=== PATIENT | female | born 1975 | race Caucasian/White ===

== ENCOUNTER 2019-06-17 11:57 | Emergency (ER) | payer OTHER ==
[~2019-06-17] VITALS: Ht 154.9 cm; Wt 54.4 kg
[2019-06-17] MEDS ORDERED: MEDROLPACK PO (14:19)
[2019-06-17] MEDS ORDERED: SKELAXIN800 MG PO (14:19)
[2019-06-17] MEDS ORDERED: NAPROXEN500 MG PO (14:19)
== END 2019-06-17 15:27 | disposition home or self-care (01) ==
LOC: ER 11:57
DX: M62.838 Other muscle spasm (principal); M54.2 Cervicalgia

== ENCOUNTER 2023-08-15 15:59 | Emergency (ER) | payer OTHER ==
[~2023-08-15] VITALS: Ht 154.9 cm; Wt 59.0 kg
[~2023-08-15 15:59] MED LIST: MEDROLPACK PO; NAPROXEN500 MG PO; SKELAXIN800 MG PO
[2023-08-15] MEDS ORDERED: CLARITIN5 MG (16:24)
[2023-08-15 17:52] LABS: URINE APPEARANCE Clear; URINE BILIRRUBIN Negative (NEGATIVE); URINE BLOOD Large; URINE COLOR Yellow; URINE GLUCOSE Negative (NEGATIVE); URINE LEUKOCYTE Negative; URINE NITRATE Negative; URINE PROTEIN Negative (NEGATIVE); URINE UROBILINOGEN 0.2 E.U./dl
[2023-08-15 17:55] LABS: HEMATOCRIT 37.9 % (36.0-45.00); HEMOGLOBIN 12.8 g/dL (12.0-15.00); MEAN CELL VOLUME 88.3 fL (80.00-100.00); MEAN CORPUSCULAR HEMOGLOBIN 29.9 pg (27.00-32.0); MEAN CORPUSCULAR HGB CONC 33.9 g/dl (32.0-36.0); PLATELET COUNT 316 K/uL (150-450); RED BLOOD COUNT 4.29 M/uL (4.00-6.00); RED CELL DISTRIBUTION WIDTH 12.6 % (11.5-14.5)
[2023-08-15 17:56] LABS: URINE BACTERIA 66.7 uL (0.0-1933); URINE EPITHELIAL CELLS 2.3 uL (0.0-38.8); URINE RBC 341.4 uL (0.0-20.8)
[2023-08-15 18:19] LABS: ALBUMIN 3.9 gm/dL (3.4-5.0); BILIRUBIN TOTAL 0.26 mg/dL (0.3-1.2); CALCIUM 9.4 mg/dL (8.5-10.1); CREATININE SERUM 0.49 mg/dL (0.55-1.02); GFR 135.96; GLOBULINA 3.6 G/DL (2.4-3.5); POTASSIUM 3.43 mEq/L (3.5-5.1); TOTAL PROTEIN 7.5 gm/dL (6.4-8.2)
[2023-08-15 18:31] LABS: URINE WBC 0.9 uL (0.0-23.2)
== END 2023-08-15 19:04 | disposition home or self-care (01) ==
LOC: ER 16:00
PROVIDERS: General Practice
DX: K29.70 Gastritis, unspecified, without bleeding (principal); R10.9 Unspecified abdominal pain; Z20.822 Contact with and (suspected) exposure to COVID-19

== ENCOUNTER 2023-09-01 23:24 | Emergency (ER) | payer OTHER ==
[~2023-09-01] VITALS: Ht 154.9 cm; Wt 59.0 kg
[~2023-09-01 23:24] MED LIST changes: +CLARITIN5 MG
[2023-09-02] MEDS ORDERED: HYDROCODONE/CHLORPHEN P-STIREX 5 ML ML PO STA (04:26)
[2023-09-02 04:38] LABS: HEMATOCRIT 38.1 % (36.0-45.00); MEAN CELL VOLUME 87.3 fL (80.00-100.00); MEAN CORPUSCULAR HEMOGLOBIN 29.7 pg (27.00-32.0); PLATELET COUNT 265 K/uL (150-450); RED BLOOD COUNT 4.36 M/uL (4.00-6.00); RED CELL DISTRIBUTION WIDTH 12.2 % (11.5-14.5)
== END 2023-09-02 05:40 | disposition home or self-care (01) ==
LOC: ER 23:24
DX: J06.9 Acute upper respiratory infection, unspecified (principal); R53.81 Other malaise; Z20.822 Contact with and (suspected) exposure to COVID-19

== ENCOUNTER 2024-09-09 15:31 | Emergency (ER) | payer OTHER ==
[~2024-09-09] VITALS: Ht 154.9 cm; Wt 56.7 kg
[2024-09-09] MEDS ORDERED: FAMOTIDINE/PF 20 MG/2 ML VIAL IV PUSH STA (17:29)
[2024-09-09] MEDS ORDERED: LACTOBACILLUS ACIDOPHILUS 1 CAP CAP PO STA (17:29)
[2024-09-09] MEDS ORDERED: HYOSCYAMINE SULFATE 0.125 MG TAB.SUBL SL STA (17:29)
[2024-09-09] MEDS ORDERED: HYOSCYAMINE SULFATE 0.125 MG TAB.SUBL ONE (18:50)
[2024-09-09] MEDS ORDERED: FAMOTIDINE/PF 20 MG/2 ML VIAL ONE (18:50)
[2024-09-09] MEDS ORDERED: LACTOBACILLUS ACIDOPHILUS 1 CAP CAP PO ONE (18:50)
[2024-09-09 19:26] LABS: CALCIUM 8.5 mg/dL (8.5-10.1); CREATININE SERUM 0.57 mg/dL (0.55-1.02); GFR 113.69; POTASSIUM 3.57 mEq/L (3.5-5.1)
== END 2024-09-09 21:05 | disposition home or self-care (01) ==
LOC: ER 15:34
PROVIDERS: General Practice
DX: K29.70 Gastritis, unspecified, without bleeding (principal)